=== PATIENT | male | born 1965 | race Caucasian/White ===

== ENCOUNTER 2020-07-06 16:41 | Emergency (ER) | payer OTHER, SELFPAY ==
[2020-07-06 16:50] VITALS: BP 135/89; PULSE 78; RESP 16; TEMP 36.9; O2SAT 97
--- NOTE | 2020-07-06 17:12 | ED_ITS ---
HPI - General Adult General Chief complaint: Urogenital-Male Stated complaint: groin pain Time Seen by Provider: 07/06/20 16:44 Source: patient Mode of arrival: Ambulatory Limitations: no limitations History of Present Illness HPI narrative: Patient is a 54-year-old male here for evaluation of tender small masses in his right inguinal region. He states that they have been growing for the past couple days. He has not had any fevers. No skin changes. No problems urinating. No bowel changes. Has never had anything like this in the past. Patient states he is not concerned about any sexually transmitted diseases. Review of Systems Constitutional Constitutional: Denies fever(s) Respiratory Respiratory: Denies cough Gastrointestinal Gastrointestinal: Denies abdominal pain Integumentary/Breasts Skin/Breast: Denies lesions and Denies rash Neurologic Neurologic: Denies behavioral changes Psychiatric Psychiatric: Denies behavioral changes Hematologic/Lymphatic Hematologic/Lymphatic: Denies easy bleeding and Denies easy bruising Allergic/Immunologic Allergic/Immunologic: Denies urticaria Patient History Medical History Healthy adult Social History lives independently: Yes Exam Initial Vital Signs Initial Vital Signs: Vital Signs Temperature 98.5 F 07/06/20 16:50 Pulse Rate 78 07/06/20 16:50 Respiratory Rate 16 07/06/20 16:50 Blood Pressure 135/89 07/06/20 16:50 Pulse Oximetry 97 07/06/20 16:50 Const General: cooperative and comfortable Limitations: mental status not altered HENMT Head: normal to inspection and normocephalic External: normal external exam and circumcised Penis: normal penis Scrotum: scrotum normal Testes: normal Skin Lesions: no lesions Rashes: no rashes Extrem General: capillary refill normal Course Orders Ordered: ED Orders 07/06/20 17:12 US extremity nonvasc lower rt Stat Vital Signs Vital signs: Vital Signs - 8 hr 07/06/20 16:50 Temperature 98.5 F Pulse Rate 78 Respiratory Rate 16 Blood Pressure 135/89 Pulse Oximetry 97 Medical Decision Making Imaging Data Soft tissue ultrasound: Radiologist's Impression: [address] [id number] ReportSigned Patient: Maximo Hilliard#: [id number]: 1965Acct:[id number]/Sex: 54 / MDate of Service: 07/06/20Loc: EDAccession Number: [id number] Procedure: US extremity nonvasc lower rt Ordering Provider: Darci Kong D.O. PROCEDURE: US EXTREMITY NONVASC LOWER RT INDICATIONS: 2 right groin masses TECHNIQUE: Real-time scanning was performed of the right groin, with image documentation. COMPARISON: None. FINDINGS: Focused ultrasound examination of right inguinal region shows multiple enlarged lymph nodes. Most superior node measures 1.6 x 1.3 x 1.6 cm in size. More superior medial node measures 2 x 1.2 x 2.1 cm in size. More inferior node measures 1.5 x 1.1 x 1.5 cm in size. Most inferior node measures 2.3 x 1.1 x 1.6 cm in size. Increased vascularity within all 4 nodes are seen. IMPRESSION: Prominent right inguinal lymph nodes with increased vascularity as described above and may represent reactive inflammatory lymph nodes. Malignant process cannot be entirely excluded. Clinical correlation and follow-up is recommended. Dictated by: Tony Sheets M.D. on 07/06/2020 at 17:42 Approved by: Tony Sheets M.D. on 07/06/2020 at 17:48 MDM Narrative Medical decision making narrative: Patient with 2 separate tender well circumscribed nodules in the right inguinal region. One approximately 2 cm x 1 cm. The other 1 cm x 1 cm. No overlying skin changes. Testicles are unremarkable. Rest of his exam is unremarkable. The ultrasound consistent with lymph nodes. There is no immediate indication of any specific infection. Patient states that he is not concerned about any sexually transmitted diseases. I suspect these are reactive nodes. Will hold on antibiotics. He was informed he needs to contact his primary doctor when he returns home for follow-up especially if the lymph nodes do not resolve. He expressed understanding and agreement. Discharge Plan Departure Patient Disposition: Home Clinical Impression: Inguinal lymphadenopathy Instructions: DI for Lymphadenopathy Activity Restrictions/Additional Instructions: Recommend that you may contact the primary doctor when you return home. These lymph nodes should improve in the next couple days and if they do not or if they become worse or you have other skin findings concerning for an infection please return to the emergency department.
[2020-07-06 19:08] VITALS: BP 128/78; PULSE 77; RESP 16; O2SAT 97
== END 2020-07-06 19:09 | disposition home or self-care (01) ==
PROVIDERS: Emergency Provider Emergency Medicine
DX: R59.0 Localized enlarged lymph nodes (principal)
CPT/HCPCS: 76882; 99283